=== PATIENT | female | born 1950 | race Caucasian/White ===

== ENCOUNTER 2017-09-27 08:42 | Day surgery (SDC) | payer MEDICARE, MEDICAID ==
--- NOTE | 2017-09-27 06:45 | History and Physical Report ---
DATE: 09/26/2017. CHIEF COMPLAINT AND HISTORY OF CHIEF COMPLAINT: This patient presents with a history of intractable lumbar radiculitis. A spinal cord stimulator trial was conducted on 08/05/2017 with 75 to 90 percent pain control. Due to the failure of all therapies and the success of the trial, she presents today for implantation of a permanent system. PAST MEDICAL HISTORY: Asthmatic bronchitis, hypertension, reflux esophagitis. SOCIAL HISTORY: Caffeine. FAMILY HISTORY: Coronary artery disease, hypertension, cancer. PAST SURGICAL HISTORY: Hysterectomy, venous ligation, gallbladder surgery, bladder surgery, knee surgery. MEDICATIONS ON ADMISSION: To be provided. ALLERGIES: Tetracycline and sulfa. REVIEW OF SYSTEMS: The patient is appropriate and in no acute distress. The remainder of the systems review shows chronic head and neck infections, bronchitis, degenerative arthritis, difficulty sleeping. PHYSICAL EXAMINATION: General: Height is 5 feet, 3 inches. Weight is 130 pounds. Vital Signs: Not available. HEENT: Within normal limits. Lungs: Clear. Heart: Regular rate and rhythm. Abdomen: Nontender. Musculoskeletal: Examination of the musculoskeletal system shows diffuse tenderness in the lumbar spine. Range of motion does produce pain into both legs across a 5-1 pattern. Motor and sensory field function in the lower extremities appears to be essentially intact. No obvious deficits. Ambulation: No assistive device utilized. Neurologic: Cranial nerves are intact. IMPRESSION: LUMBAR RADICULITIS, ICD-10 CODE M54.16 AND M54.17. PLAN: The patient is here for implantation of a permanent spinal cord stimulator based upon a successful trial and the failure of all other therapies. The potential risks, side effects, and complications have all been carefully reviewed and discussed. These include nerve root injury, spinal cord injury, and dural puncture headache. She understands and has consented. We will consider the procedure outpatient, although an overnight stay will be evaluated. JOB NUMBER: [id number] cc: Saloni Beltran
[~2017-09-27 08:42] MED LIST: ACETAMINOPHEN 1,000 MG/100 ML BTL IV ONE; CEFAZOLIN 2 Gram 2 GM/50 ML BAG IVPB ONE; FAMOTIDINE 20MG TABLET PO ONE; MECLIZINE 25 MG TABLET PO ONE; METOCLOPRAMIDE 10 MG TABLET PO ONE
[2017-09-27] MEDS ORDERED: LIDOCAINE 1% W/EPI 1:200,000 MPF 30ML SQ ONE (08:43)
[2017-09-27] MEDS ORDERED: BUPIVACAINE 0.75% W/EPI MPF 30ML VIAL IVP ONE (08:43)
[2017-09-27] MEDS ORDERED: PROPOFOL 10 MG/ML VIAL IV ONE (08:43)
[2017-09-27] MEDS ORDERED: CEFAZOLIN 1G VIAL IM ONE (08:43)
[2017-09-27] MEDS ORDERED: HYDROMORPHONE HCL 2 MG/ML VIAL IV ONE (08:43)
[2017-09-27] MEDS ORDERED: LIDOCAINE 2% MDV (20MG/ML) 20ML VIAL IV ONE (08:43)
[2017-09-27] MEDS ORDERED: HYDROMORPHONE HCL 2 MG/ML VIAL IM PRN (12:52)
[2017-09-27] MEDS ORDERED: SENNOSIDES/DOCUSATE SODIUM UD CAPSULE PO PRN ×2 (12:52)
[2017-09-27] MEDS ORDERED: OXYCODONE/APAP 10MG-325MG TABLET PO PRN ×2 (12:52)
[2017-09-27] MEDS ORDERED: HYDROMORPHONE HCL 1 MG/ML SYRINGE IM PRN (12:52)
[2017-09-27] MEDS ORDERED: ACETAMINOPHEN 325 MG TAB PO PRN ×2 (12:52)
[2017-09-27] MEDS ORDERED: METOCLOPRAMIDE 10 MG TABLET PO PRN (12:52)
[2017-09-27] MEDS ORDERED: AL HYDROX/MAG HYDROX 30ML UD PO PRN (12:52)
[2017-09-27] MEDS ORDERED: TEMAZEPAM 15 MG CAPSULE PO PRN ×2 (12:52)
[2017-09-27] MEDS ORDERED: METOCLOPRAMIDE HCL 10 MG/2 ML VIAL IVP PRN (12:52)
[2017-09-27] MEDS ORDERED: DIPHENHYDRAMINE HCL IV 50 MG/ML VIAL IVP PRN ×2 (12:52)
[2017-09-27] MEDS ORDERED: DIPHENHYDRAMINE HCL 25 MG CAPSULE PO PRN ×2 (12:52)
[2017-09-27] MEDS ORDERED: HYDROCODONE/APAP 7.5/325MG TABLET PO PRN (12:52)
[2017-09-27] MEDS: PATIENT OWN MED: ALPRAZOLAM 0.5 MG PO SCH ×2 (15:50→22:11)
[2017-09-27] MEDS: CEFAZOLIN 2 Gram 2 GM/50 ML BAG IVPB SCH (18:30)
[2017-09-27] MEDS: HYDROCODONE/APAP 7.5/325MG TABLET PO PRN (20:11)
[2017-09-27] MEDS ORDERED: PATIENT OWN MED: AMLODIPINE 10 MG PO SCH (22:00)
[2017-09-27] MEDS ORDERED: PATIENT OWN MED: TRAZODONE 50 MG PO SCH (22:00)
[2017-09-27] MEDS: 0.9 % SODIUM CHLORIDE 10ML SYR IVP SCH (22:05)
[2017-09-28] MEDS: HYDROCODONE/APAP 7.5/325MG TABLET PO PRN ×2 (02:04→08:22)
[2017-09-28] MEDS: CEFAZOLIN 2 Gram 2 GM/50 ML BAG IVPB SCH ×2 (02:04→10:20)
[2017-09-28] MEDS: 0.9 % SODIUM CHLORIDE 10ML SYR IVP SCH (10:20)
--- NOTE | 2017-09-28 17:26 | RADIOLOGY REPORT ---
EXAM: SPINE, 1 VIEW HISTORY: POST SPINAL CORD STIMULATOR IMPLANT. TECHNIQUE: A single AP view of the thoracic and lumbar spine obtained from the approximate level of the body of L1 down into the upper sacrum. COMPARISON: None. FINDINGS: There is slight tilting of the spine to the left. There is a battery pack overlying the right lower quadrant of the abdomen with two wires extending from this overlie the mid to upper lumbar spine and then ascend up to the mid thoracic level with the right-sided wire terminating at the level of the upper aspect of the body of T6 and the left-sided wire extending a bit more superiorly , probably at the level of the T5-6 interspace. Some hypertrophic spurring in the thoracic spine. IMPRESSION: SPINAL CORD STIMULATOR DEVICE IN PLACE WITH ELECTRODE LEADS EXTENDING UP INTO THE MID THORACIC LEVEL, DESCRIBED ABOVE. JOB NUMBER: [id number] MTDD
--- NOTE | 2017-09-30 06:22 | Operative Note - Ferro ---
DATE OF SURGERY: 09/27/2017. PREOPERATIVE DIAGNOSIS: LUMBAR RADICULITIS, ICD-10 CODE M54.16 AND M54.17. POSTOPERATIVE DIAGNOSIS: LUMBAR RADICULITIS, ICD-10 CODE M54.16 AND M54.17. OPERATION: 1. Fluoroscopically guided epidural access at T11-12. Placement of spinal cord stimulator lead 1, a [employer] Infinion 16 with 16 electrodes, positioned left T7. 2. Fluoroscopically guided epidural access at T10-11. Placement of spinal cord stimulator lead 2, a [employer] Infinion 16 with 16 electrodes, positioned right T7. 3. Complex programming of lead 1 over 20 minutes followed by complex programming of lead 2 over 20 minutes. 4. Incision, subcutaneous dissection, and anchoring of lead 1 and lead 2 to the supraspinous fascia using a [employer] locking anchor. 5. Incision, subcutaneous dissection, and creation of subcutaneous pouch at right posterior gluteal margin for placement of the generator identified as a [employer] programmable rechargeable. 6. Tunneling between pouches. Placement of the external portion of lead 1 and lead 2 into generator pouch, each lead interfaced to the generator. 7. Placement of generator into pouch, securing to posterior fascia using nonabsorbable suture. Placement of leads into pouch with closure of both incisions with Vicryl for the fascia and running subcuticular Vicryl for the skin. Dermabond closure. 8. Complex recovery room programming of the internal generator for 20 minutes. SURGEON: Keegan Fischer D.O. ANESTHESIA: Local sedation. ANESTHESIA PROVIDER: Butch Coreas CRNA. INDICATION: This patient presents with a history of intractable lumbar radiculitis. A spinal cord stimulator trial was conducted with 75 to 85 percent pain control. Due to the failure of all therapies and the success of the trial, the patient presents today for implantation of a permanent system. DESCRIPTION OF PROCEDURE: Intravenous lines, vital sign monitoring, and intravenous sedation. Prepped and draped with sterile technique. Under imaging , the epidural interspaces at 10-11 and 11-12 were identified, marked, and infiltrated with separate curved-access Epimed needles with loss of resistance into the space. At 11-12 spinal cord stimulator lead 1, a [employer] Infinion 16 with 16 electrodes, was positioned left at T7. With the epidural access at 10-11, spinal cord stimulator lead 2, a [employer] Infinion 16 with 16 electrodes, was positioned right at T7. Complex programming of lead 1 over 20 minutes was followed by complex programming of lead 2 over 20 minutes. This resulted in a pattern of stimulation across the back and into the legs. The patient indicated we were in all of the appropriate areas of the pain. She was given the options to implant, continue to program, or remove. She opted to implant. The questions were repeated with the same response. The skin above an below both needles was infiltrated. An incision was made and subcutaneous dissection was conducted to the supraspinous fascia. Each lead was anchored to the fascia after the needles were removed with a [employer] locking anchor and nonabsorbable suture. At the right posterior gluteal margin, our site picked by the patient for the generator, the skin was infiltrated. An incision was made and subcutaneous dissection was conducted to form a pouch of suitable size and depth for the generator, a [employer] programmable rechargeable. A tunneling tool was used to carry the leads into the generator pouch, and then each lead was interfaced to the generator. Antibiotic irrigation and Bovie for hemostasis. The generator was then secured to the posterior fascia with nonabsorbable suture. The leads were placed into their pouch, and then both incisions were closed with Vicryl for the fascia and a running subcuticular Vicryl for the skin. A Dermabond closure system was used to approximate the edges of both incisions. She was transported to the recovery room stable, showing no side effects from the procedure or the sedation. When fully awake and alert, complex programming of the internal generator was performed in the recovery room for 20 minutes. This re-established stimulation of pain control to all of the appropriate areas. She was instructed on the use of the system and was provided with information on error messaging. She will be prepared for discharge in the morning. She will stay overnight for observation because of the distance from home and lack of home support and supervision. DISCHARGE INSTRUCTIONS: 1. The sites are to remain clean and dry, although the Dermabond will allow showering in 24 hours. 2. Standard medications to be resumed including the antibiotic Levaquin 500 mg once a day for 14 days. 3. Her activities should stay low with no bend, lift, push, or pull or anything strenuous until she is seen in the office in five to seven days for evaluation of the sites. The office is to contact the patient at home to set up this appointment. 5. All other instructions were provided and numbers to contact with problems were given. At that point she will be discharged in the morning. JOB NUMBER: [id number] cc: Saloni Beltran
== END 2017-09-28 10:45 | disposition home or self-care (01) ==
LOC: SUR 08:42 → MEDSURG 13:18 → SUR 09-28 10:45
PROVIDERS: ATTEND Pain Medicine Interventional Pain Medicine
DX: M54.16 Radiculopathy, lumbar region (principal); M54.17 Radiculopathy, lumbosacral region; J45.909 Unspecified asthma, uncomplicated; I10 Essential (primary) hypertension
CPT/HCPCS: 63685; 63650 ×2; 01936; 95972; 72020; J1170; J0690 ×2; J3490; C1820; C1883

== ENCOUNTER 2018-01-01 07:17 | Day surgery (SDC) | payer MEDICARE, MEDICAID ==
[2018-01-01] MEDS ORDERED: LIDOCAINE 1% W/EPI 1:200,000 MPF 30ML SQ ONE (07:18)
[2018-01-01] MEDS ORDERED: PROPOFOL 10 MG/ML VIAL IV ONE (07:18)
[2018-01-01] MEDS ORDERED: BUPIVACAINE 0.5% W/EPI MPF 30 ML VIAL IVP ONE (07:18)
[2018-01-01] MEDS ORDERED: FENTANYL PF 100MCG/2ML VIAL IV ONE (07:18)
[2018-01-01] MEDS ORDERED: DEXAMETHASONE PRESERVATIVE FREE 10MG/ML VIAL IV ONE (07:18)
[2018-01-01] MEDS ORDERED: *PACU ONLY* KETAMINE HCL 10 MG/ML (20ML) VIAL IV ONE (07:18)
--- NOTE | 2018-01-01 19:34 | Operative Note - Ferro ---
DATE OF SURGERY: 01/01/18. PREOPERATIVE DIAGNOSIS: CERVICAL SPONDYLOSIS WITHOUT MYELOPATHY, ICD-10 CODE = M47.812. SURGERY: RADIOFREQUENCY RHIZOTOMY BILATERAL CERVICAL FACETS 4-5 AND 5-6. SURGEON: EVELIA STEVENSON D.O. ANESTHESIA: LOCAL SEDATION. ANESTHESIA PROVIDER: GUCCI DIEZ CRNA INDICATION: This patient presents with pain, which is in his neck. Examination shows diffuse tenderness in the cervical spine. Range of motion causes pain to the neck with extension. Diagnostics studies show diffuse multiple levels of spondylosis. A facet series at 3-4 to 5-6 with 75-85% pain control. Due to the failure of therapy, she presents for rhizotomy for more long-term relief. Insurance authorization only approved for 4-5 and 5-6. PROCEDURE: Intravenous line, vital sign monitoring, IV sedation, prepped, draped, sterile technique. Cervical facet levels at 4-5 and 5-6 identified and marked bilaterally. Skin infiltrated. A #22 gauge rhizotomy cannula positioned. Stimulation trials conducted. Rhizotomy burn performed. Local with anti- inflammatory into the sites. Topical antibiotics. Sterile dressing applied. We will monitor and evaluate. cc: Dr. Mcdonnell JOB NUMBER: [id number] MTDD
== END 2018-01-01 09:20 | disposition home or self-care (01) ==
LOC: SUR 07:17
PROVIDERS: ATTEND Pain Medicine Interventional Pain Medicine
DX: M47.812 Spondylosis without myelopathy or radiculopathy, cervical region (principal)
CPT/HCPCS: 64633; 64634; 01936; J1100; J3010

== ENCOUNTER 2018-10-29 07:00 | Day surgery (SDC) | payer MEDICARE, MEDICAID ==
--- NOTE | 2018-10-29 06:33 | History and Physical - Ferro ---
CHIEF COMPLAINT/HISTORY OF CHIEF COMPLAINT: This patient with a history of intractable lumbar radiculopathy has a spinal cord stimulator implant positioned on 09/26/17. Although initially working quite well her pain has evolved extending further out into the lower extremities and higher up into her low back. The ability of the current system has been good until the pain extension and seemed to change. Attempts at reprogramming the system to meet the change in pattern of the pain has been unsuccessful. She is here for a battery generator change to the new [employer] Three[employer] technology hopefully to improve our stimulation possibility and improve our characteristics in generator control of her pain. This to meet the changing areas of her pain PAST MEDICAL HISTORY: Asthmatic bronchitis, hypertension, and reflux. PAST SURGICAL HISTORY: Hysterectomy, venous ligation surgery, gallbladder surgery, bladder surgery, knee surgery, and stimulator implant. MEDICATIONS ON ADMISSION: List to be provided. ALLERGIES: TETRACYCLINE AND SULFA. FAMILY/PSYCHOSOCIAL HISTORY: Social history - Caffeine. Family history - Coronary artery disease, hypertension, and cancer. SYSTEMS REVIEW: The patient is appropriate in no acute distress. The remainder of the systems review is positive for chronic head and neck pain, bronchitis, and degenerative arthritis. PHYSICAL EXAMINATION: Height is 5'3", weight is 130. No vital signs. HEENT: Within normal limits. LUNGS: Clear. HEART: Rapid and regular. ABDOMEN: Nontender. MUSCULOSKELETAL: Examination of the musculoskeletal system shows the generator at the right posterior gluteal margin. The incision is intact. Midline incisions for the leads are intact. NEUROLOGIC: Cranial nerves are intact. IMPRESSION: 1. LUMBAR RADICULOPATHY, ICD-10 CODE M54.16 AND M54.17. 2. SPINAL CORD STIMULATOR INTERNAL GENERATOR. PLAN: The patient is here on an outpatient basis for a generator change to the new technology to improve the characteristics of stimulation and control the changing pattern of pain. The procedure will be outpatient although an overnight stay can be evaluated. J[facility] NUMBER: [id number] [facility]
[~2018-10-29 07:00] MED LIST changes: -ACETAMINOPHEN 1,000 MG/100 ML BTL IV ONE
[2018-10-29] MEDS ORDERED: PROPOFOL 10 MG/ML VIAL IV ONE (07:01)
[2018-10-29] MEDS ORDERED: CEFAZOLIN 1G VIAL IM ONE (07:01)
[2018-10-29] MEDS ORDERED: MIDAZOLAM HCL 2MG/2ML VIAL IV ONE (07:01)
[2018-10-29] MEDS ORDERED: LIDOCAINE 2% MDV (20MG/ML) 20ML VIAL IV ONE (07:01)
[2018-10-29] MEDS ORDERED: BUPIVACAINE 0.5% W/EPI MPF 30 ML VIAL IVP ONE (07:01)
[2018-10-29] MEDS ORDERED: FENTANYL PF 100MCG/2ML VIAL IV ONE (07:01)
[2018-10-29] MEDS ORDERED: LIDOCAINE 1% W/EPI 1:200,000 MPF 30ML SQ ONE (07:01)
[2018-10-29] MEDS ORDERED: ACETAMINOPHEN 1,000 MG/100 ML BTL IV ONE (07:01)
--- NOTE | 2018-10-30 17:29 | Operative Note - Ferro ---
DATE OF SURGERY: 10/29/18 PREOPERATIVE DIAGNOSES: 1. LUMBAR RADICULOPATHY. 2. SPINAL CORD STIMULATOR INTERNAL GENERATOR. OPERATION: FLUOROSCOPICALLY-GUIDED INCISION, SUBCUTANEOUS DISSECTION, AND REMOVAL AND REPLACEMENT OF INTERNAL PULSE GENERATOR WITH WAVEWRITER GENERATOR. SURGEON: EVELIA STEVENSON D.O. ANESTHESIA: LOCAL SEDATION. ANESTHESIA PROVIDER: GUCCI DIEZ CRNA. INDICATION: This patient presents with a history of intractable lumbar radiculopathy. A spinal cord stimulator internal generator is in position. Recent changes in pain pattern have made control to the current system difficult to impossible. Multiple attempts of reprogramming had been unsuccessful. She is here for a generator change to improve the programming capabilities to control the changing patterns of her pain. PROCEDURE: Intravenous line, vital sign monitoring, IV sedation, prepped and draped sterile technique. With the patient position prone, sterile prep, sterile technique. The generator incision at the right posterior gluteal margin identified and marked and infiltrated. Incision made and subcutaneous dissection was conducted to the pouch. The generator was exteriorized and from the internal leads. The new WaveWriter pulse generator placed onto the field and interfaced with the indwelling leads. Antibiotic irrigation and Bovie for hemostasis. The generator was placed back into the field after being interfaced with the leads and then incision was closed using STRATAFIX suture 2-0 fascia, 3-0 skin. Dermabond closure. The patient was transported to the Recovery Room stable. When in the Recovery Room, complex programming of the generator performed over 20 minutes re-establishing stimulation and pain control with all of the appropriate areas. She was instructed with the use of the system, provided with information and error messaging, and then prepared for discharge. DISCHARGE INSTRUCTIONS: 1. Sites remain clean and dry although the Dermabond will allow showering. 2. Standard medications resumed including the antibiotic, Levaquin. She will take 500 mg once a day for 14 days. 3. The office will contact the patient at home in the next 24-48 hours to set up a time in the next 7-10 days for us to evaluate the sites. Until then, activities should stay low. All other instructions provided, numbers to contact with problems given. She was then discharged. cc: Dr. Mcdonnell JOB NUMBER: [id number] [facility]
== END 2018-10-29 09:35 | disposition home or self-care (01) ==
LOC: SUR 07:00
PROVIDERS: ATTEND Pain Medicine Interventional Pain Medicine
DX: M54.16 Radiculopathy, lumbar region (principal); I10 Essential (primary) hypertension; G47.33 Obstructive sleep apnea (adult) (pediatric); J45.909 Unspecified asthma, uncomplicated
CPT/HCPCS: 63685; 00300; 95972; J3010; J0690; C1820

== ENCOUNTER 2018-12-31 06:06 | Day surgery (SDC) | payer MEDICARE, MEDICAID ==
[2018-12-31] MEDS ORDERED: LIDOCAINE 1% W/EPI 1:200,000 MPF 30ML SQ ONE (06:07)
[2018-12-31] MEDS ORDERED: KETAMINE HCL 100MG/1ML VIAL INJ ONE (06:07)
[2018-12-31] MEDS ORDERED: HYDROCODONE/APAP 7.5/325MG TABLET PO ONE (06:07)
[2018-12-31] MEDS ORDERED: PROPOFOL 10 MG/ML VIAL IV ONE (06:07)
[2018-12-31] MEDS ORDERED: FENTANYL PF 100MCG/2ML VIAL IV ONE (06:07)
[2018-12-31] MEDS ORDERED: DEXAMETHASONE PRESERVATIVE FREE 10MG/ML VIAL IV ONE (06:07)
[2018-12-31] MEDS ORDERED: BUPIVACAINE 0.5% W/EPI MPF 30 ML VIAL IVP ONE (06:07)
[2018-12-31] MEDS ORDERED: MIDAZOLAM HCL 2MG/2ML VIAL IV ONE (06:07)
--- NOTE | 2019-01-02 13:40 | Operative Note ---
DATE OF SURGERY: 12/31/2018. PRIMARY CARE PHYSICIAN: Jamshid Mcdonnell D.O. PREOPERATIVE DIAGNOSIS: CERVICAL SPONDYLOSIS WITHOUT MYELOPATHY, ICD-10 CODE M47.812. POSTOPERATIVE DIAGNOSIS: CERVICAL SPONDYLOSIS WITHOUT MYELOPATHY, ICD-10 CODE M47.812. PROCEDURE: Radiofrequency rhizotomy was performed of the bilateral cervical facets at 3-4, 4-5, and 5-6. ANESTHESIA: Local sedation. ANESTHESIA PROVIDER: [employer] ELECTRICAL ENGINEER. INDICATIONS: This patient presents with pain which is primarily in the neck. Examination shows tenderness in the cervical spine. Range of motion produces pain to the neck with extension. Diagnostics show diffuse spondylosis. A facet series provided 75 percent relief. Due to the failure of therapy and the success of the facet series the patient presents for rhizotomy for more long- term relief. DESCRIPTION OF PROCEDURE: Intravenous lines, vital sign monitoring, and intravenous sedation. Prepped and draped with sterile technique. Under imaging the facet levels in the cervical spine in the area of pain were identified and marked at 3-4, 4-5, and 5-6 bilaterally. Each one of these points on the skin was infiltrated. A 22-gauge rhizotomy cannula was positioned. Stimulation trial was conducted, and rhizotomy burn was performed. Local with anti-inflammatory into the sites. Topical antibiotic and sterile dressing was applied. Will monitor and evaluate. cc: Jamshid Mcdonnell D.O. Job Number: [id number] MTDD
== END 2018-12-31 08:50 | disposition home or self-care (01) ==
LOC: SUR 06:06
PROVIDERS: ATTEND Pain Medicine Interventional Pain Medicine
DX: M47.812 Spondylosis without myelopathy or radiculopathy, cervical region (principal); I10 Essential (primary) hypertension; J44.9 Chronic obstructive pulmonary disease, unspecified; J45.909 Unspecified asthma, uncomplicated; F17.210 Nicotine dependence, cigarettes, uncomplicated
CPT/HCPCS: 64633; 64634 ×2; 01992; J1100; J3010; J3490